=== PATIENT | male | born 1960 | race Asian ===

== ENCOUNTER 2017-04-21 16:50 | Emergency (ER) | payer OTHER ==
[~2017-04-21] VITALS: Ht 180.3 cm; Wt 45.9 kg
[~2017-04-21 16:50] MED LIST: INTE30PE3 IM
[2017-04-21 18:02] VITALS: BP 117/85
[2017-04-21] MEDS ORDERED: DIAZEPAM 5 MG TABLET PO ONE (18:30)
[2017-04-21] MEDS ORDERED: DIAZEPAM 5 MG TABLET ONE (18:35)
== END 2017-04-21 20:50 | disposition home or self-care (01) ==
LOC: ED 20:45
DX: K59.00 Constipation, unspecified (principal)
CPT/HCPCS: 74020; 99284

== ENCOUNTER 2017-04-26 11:21 | Emergency (ER) | payer OTHER ==
[~2017-04-26] VITALS: Ht 179.1 cm; Wt 46.2 kg
[2017-04-26 12:07] LABS: HEMATOCRIT 46.7 % (39.2-51.8); HEMOGLOBIN 15.7 g/dL (13.7-18.0); WHITE BLOOD COUNT 6.6 x10^3/uL (3.4-10)
[2017-04-26 12:18] LABS: BLOOD UREA NITROGEN 12 mg/dL (7-18)
[2017-04-26 12:56] VITALS: BP 122/91
[2017-04-26 13:11] LABS: PATH.CAST-FLAG NOT PRESENT; SPERM-FLAG NOT PRESENT; SRC-FLAG NOT PRESENT; XTAL-FLAG NOT PRESENT; YLC-FLAG NOT PRESENT
[2017-04-26] MEDS ORDERED: TAMSULOSIN 0.4 MG CAP.ER.24H PO ONE (13:30)
[2017-04-26] MEDS ORDERED: TAMSULOSIN 0.4 MG CAP.ER.24H ONE (13:37)
== END 2017-04-26 16:13 | disposition home or self-care (01) ==
LOC: ED 13:04
DX: R33.9 Retention of urine, unspecified (principal)
CPT/HCPCS: 36415; 80048; 81001; 82040; 85025; 87077; 87086; 87186; 99284

== ENCOUNTER 2017-04-27 23:26 | Emergency (ER) | payer OTHER ==
[~2017-04-27] VITALS: Ht 177.8 cm; Wt 70.0 kg
[2017-04-27 23:29] VITALS: BP 134/93
== END 2017-04-28 02:05 ==
LOC: ED 04-28 01:12
DX: K59.00 Constipation, unspecified (principal)
CPT/HCPCS: 74022; 99284

== ENCOUNTER 2019-01-08 08:42 | Emergency (ER) | payer OTHER ==
[~2019-01-08] VITALS: Ht 177.8 cm; Wt 50.0 kg
[2019-01-08 08:48] VITALS: BP 129/89
[2019-01-08] MEDS ORDERED: LIDOCAINE 2%,20 ML JEL.PF.APP MM ONE ×2 (09:10→09:30)
--- NOTE | 2019-01-08 09:39 | NUR ---
1500ML U/O WITH WAITE INSERTION. SEE PAPER CHARTING. UA TO LAB. PT TOLERATED WELL
[2019-01-08 09:44] LABS: MICROSCOPIC AUTO
[2019-01-08 09:49] LABS: CULTURE INDICATED? NO
--- NOTE | 2019-01-08 09:53 | NUR ---
BREAK RN: DR CARDENAS AT BEDSIDE TO RE-EVAL PT. PT PROVIDED WITH WARM BLANKET. WAITE TO DOWN DRAIN, CLEAR YELLOW URINE.
--- NOTE | 2019-01-08 09:56 | NUR ---
REPORT TO FELICIA SHERMAN
--- NOTE | 2019-01-08 10:33 | NUR ---
PT LEG BAG ATTACHED AND PT INSTRUCTED ON USE. PT VERBALIZES UNDERSTANDING. PT REFUSES TO TAKE LARGE WAITE BAG.
== END 2019-01-08 10:35 | disposition home or self-care (01) ==
LOC: ED 09:56
DX: R33.9 Retention of urine, unspecified (principal); R10.30 Lower abdominal pain, unspecified; F17.200 Nicotine dependence, unspecified, uncomplicated
CPT/HCPCS: 51702; 81001; 99284

== ENCOUNTER 2019-01-12 20:50 | Emergency (ER) | payer OTHER ==
[~2019-01-12] VITALS: Ht 175.3 cm; Wt 63.0 kg
[2019-01-12 21:13] VITALS: BP 116/73
--- NOTE | 2019-01-12 21:36 | NUR ---
pt to room from lobby
== END 2019-01-12 23:01 | disposition home or self-care (01) ==
LOC: ED 22:07
DX: T83.038A Leakage of other urinary catheter, initial encounter (principal); R33.9 Retention of urine, unspecified
CPT/HCPCS: 99281

== ENCOUNTER 2019-06-22 18:55 | Emergency (ER) | payer OTHER ==
[~2019-06-22] VITALS: Ht 177.8 cm; Wt 47.0 kg
--- NOTE | 2019-06-22 20:31 | NUR ---
ATTEMPTED TO VOID. UNABLE. URINAL AT BEDSIDE.
[2019-06-22 20:33] LABS: BASOPHILS # (AUTO) 0.03 x10^3/uL (0-0.1); BASOPHILS % (AUTO) 0 % (0-1); EOSINOPHILS % (AUTO) 1 % (1-7); LYMPHOCYTES # (AUTO) 1.74 x10^3/uL (1-3.4); LYMPHOCYTES % (AUTO) 23 % (22-44); MD NO; MEAN CORPUSCULAR HEMOGLOBIN 31.6 pg (27.5-34.5); MEAN CORPUSCULAR HGB CONC 33.7 g/dL (33.2-36.2); MEAN CORPUSCULAR VOLUME 93.9 fL (81-97); MEAN PLATELET VOLUME 8.7 fL (7.4-10.4); MONOCYTES # (AUTO) 0.67 x10^3/uL (0.2-0.8); MONOCYTES % (AUTO) 9 % (2-9); NEUTROPHILS # (AUTO) 5.03 x10^3/uL (1.8-6.8); NEUTROPHILS % (AUTO) 66 % (42-75); PLATELET COUNT 259 x10^3/uL (130-400); RED BLOOD COUNT 5.05 x10^6/uL (4.38-5.82)
[2019-06-22 20:42] LABS: ANION GAP 5 mmol/L (5-15); CALCIUM 9.6 mg/dL (8.5-10.1); CHLORIDE 103 mmol/L (98-107); CREATININE 0.92 mg/dL (0.7-1.3)
[2019-06-22 20:46] LABS: TROPONIN I < 0.015 ng/mL (0.000-0.045)
--- NOTE | 2019-06-22 21:05 | NUR ---
UP TO BR TO VOID. VOID X 1. CC COLLECTED AND SENT TO THE LAB.
[2019-06-22 21:20] LABS: MICROSCOPIC NOT IND
[2019-06-22 21:25] LABS: CULTURE INDICATED? NO
--- NOTE | 2019-06-22 22:02 | NUR ---
D/C INST REVIEWED W/ THE PT TO INCLUDE DILIGENT BOWEL CARE PROGRAM. THE PT VERB UNDERSTANDING AND DENIES QUESTIONS. THE PT WAS ASST OUT BY HIS FRIEND.
[2019-06-22 22:03] VITALS: BP 131/83
== END 2019-06-22 22:06 | disposition home or self-care (01) ==
LOC: ED 21:45
DX: K21.9 Gastro-esophageal reflux disease without esophagitis (principal)
CPT/HCPCS: 36415; 74022; 80048; 81003; 82040; 84484; 85025; 93005; 99283; 99284

== ENCOUNTER 2019-06-30 19:58 | Emergency (ER) | payer OTHER ==
[~2019-06-30] VITALS: Ht 177.8 cm; Wt 53.0 kg
[2019-06-30 20:21] VITALS: BP 111/79
[2019-06-30] MEDS ORDERED: DIPH,PERTUSS(ACELL),TET VAC/PF 0.5 ML IM-VACC ONE ×2 (20:30→20:40)
[2019-06-30] MEDS ORDERED: LIDOCAINE 1%-EPI 1:100K, 20ML INFIL ONE (21:30)
[2019-06-30] MEDS ORDERED: LIDOCAINE 1%-EPI 1:100K, 20ML ONE (21:33)
== END 2019-06-30 22:08 | disposition home or self-care (01) ==
LOC: ED 21:12
DX: S09.90XA Unspecified injury of head, initial encounter (principal); S01.01XA Laceration without foreign body of scalp, initial encounter; F17.210 Nicotine dependence, cigarettes, uncomplicated; W01.198A Fall on same level from slipping, tripping and stumbling with subsequent striking against other object, initial encounter; Y93.89 Activity, other specified; Y92.009 Unspecified place in unspecified non-institutional (private) residence as the place of occurrence of the external cause; Y99.8 Other external cause status
CPT/HCPCS: 12031; 70450; 90471; 90715; 99284; J3490

== ENCOUNTER 2019-07-13 09:29 | Emergency (ER) | payer OTHER ==
[~2019-07-13] VITALS: Ht 177.8 cm; Wt 49.0 kg
[2019-07-13 09:49] VITALS: BP 126/84
[2019-07-13] MEDS ORDERED: NEOSPORIN OINT. PKT 1 PACKET ONE ×2 (10:06→10:07)
--- NOTE | 2019-07-13 10:12 | NUR ---
4 SUTURES REMOVED W/O DIFFICULTY INCISION WELL APPROXIMATED AND HEALING. NO S/S OF INFECTION.
--- NOTE | 2019-07-13 10:13 | NUR ---
Patient/Caregiver given discharge instructions and they have confirmed that they understand the instructions. Patient ambulatory with cane.
== END 2019-07-13 10:15 | disposition home or self-care (01) ==
LOC: ED 10:07
DX: S01.01XD Laceration without foreign body of scalp, subsequent encounter (principal); X58.XXXD Exposure to other specified factors, subsequent encounter
CPT/HCPCS: 99281